=== PATIENT | male | born 1965 | race Caucasian/White ===

== ENCOUNTER 2017-01-04 13:12 | Outpatient (CLI) | payer BC, OTHER ==
[2017-01-04 19:11] LABS: BASOPHILS # (AUTO) 0.1 10^3/uL (0.0-0.1); EOSINOPHILS # (AUTO) 0.1 10^3/uL (0.0-0.7); EOSINOPHILS % (AUTO) 1.9 %; HCT - HEMATOCRIT 41.4 % (42.0-52.0); HGB - HEMOGLOBIN 14.1 g/dL (14.0-18.0); LYMPHOCYTES % (AUTO) 37.8 %; MEAN CORPUSCULAR HEMOGLOBIN 34.2 pg (27.0-31.0); MEAN CORPUSCULAR VOLUME 100.8 fL (80.0-94.0); MEAN PLATELET VOLUME 7.5 fL (7.4-11.4); MONOCYTES # (AUTO) 0.5 10^3/uL (0.0-1.0); MONOCYTES % (AUTO) 9.5 %; NEUTROPHILS # (AUTO) 2.6 10^3/uL (1.5-6.6); NEUTROPHILS % (AUTO) 49.8 %; NUCLEATED RED BLOOD CELLS AUTO 0.1 /100WBC; RED BLOOD COUNT 4.11 10^6/uL (4.70-6.10); RED CELL DISTRIBUTION WIDTH 12.6 % (12.0-15.0); UNCORRECTED WHITE BLOOD COUNT 5.3 x10^3/uL; WHITE BLOOD COUNT 5.3 x10^3/uL (4.8-10.8)
[2017-01-04 20:13] LABS: ALBUMIN/GLOBULIN RATIO 1.4 (1.0-2.2); BILIRUBIN,TOTAL 0.3 mg/dL (0.2-1.0); BUN - BLOOD UREA NITROGEN 25 mg/dL (6-20); CALCIUM 9.3 mg/dL (8.5-10.3); CARBON DIOXIDE - CO2 28 mmol/L (21-32); CHLORIDE 106 mmol/L (101-111); CHOL/HDL RATIO 2.7 (<5.0); CHOLESTEROL 183 mg/dL; CREATININE 0.8 mg/dL (0.6-1.2); GFR - MDRD 101 (>89); GLUCOSE 100 mg/dL (70-100); HDL CHOLESTEROL 67 mg/dL; LDL/HDL RATIO 1.6 (<3.6); POTASSIUM 4.2 mmol/L (3.5-5.0); SODIUM 142 mmol/L (135-145); TOTAL PROTEIN 7.1 g/dL (6.7-8.2); TRIGLYCERIDES 54 mg/dL; VLDL CHOLESTEROL 11 mg/dL
== END 2017-01-04 13:13 | disposition home or self-care (01) ==
LOC: LAB.WCP 13:12
PROVIDERS: ATTEND Family Medicine
DX: I10 Essential (primary) hypertension (principal)
CPT/HCPCS: 36415; 80053; 80061; 85025; 86317; 86704; 86803; 87340

== ENCOUNTER 2017-04-03 13:17 | Emergency (ER) | payer BC ==
--- NOTE | 2017-04-03 14:34 | ED Physician Documentation ---
PD HPI SEIZURE - Stated complaint Stated Complaint: SEIZURE - Chief complaint Chief Complaint: Neuro - History obtained from History obtained from: Patient, Family () - History of Present Illness Timing - onset: Last night Witnessed: Witnessed (his describes him having blank stare and them seizure like movements, foaming breathing, then awoke and was confused for 10- 15 minutes. Was sitting at time and preceded by "tunnel vision" for several seconds. No prior similar episodes.) Number of seizures: Single, Lasted minutes. No: Lasted > 30 min Description of seizure activity: Generalized Injury during seizure: None. No: Fell Associated symptoms: Vision changes. No: Headache, Palpitations, Dyspnea, Nausea / vomiting History of seizures: First seizure. No: Known seizure disorder, Prior EtOH wdrawal sz (but had had recent binge of heavy drinking for 10 days while visiting family and then no alcohol for past 2 days since returning, and was having some shakiness and nausea prior to the event. No vomiting. No head injury. Was not ill nor feverish.), Prior TBI Contributing factors: EtOH withdrawal. No: Head injury Similar symptoms before: Has not had sx before (some withdrawal in the past but previously had tapered alcohol use to stop and had been sober for 1-2 months prior to trip to visit family (for family ).) Recently seen: Not recently seen Review of Systems Constitutional: denies: Fever, Chills Nose: denies: Rhinorrhea / runny nose, Congestion Throat: denies: Sore throat Respiratory: denies: Cough PD PAST MEDICAL HISTORY - Past Medical History Past Medical History: Yes Cardiovascular: Hypertension Respiratory: None Neuro: None Endocrine/Autoimmune: None - Past Surgical History Past Surgical History: Yes General: Bowel surgery HEENT: Tonsil/Adenoidectomy - Present Medications Home Medications: Ambulatory Orders Medication Instructions Recorded Confirmed Hydrochlorothiazide 0 mg PO DAILY 04/03/17 04/03/17 Lisinopril 0 mg PO DAILY 04/03/17 04/03/17 Lorazepam [Ativan] 1 mg PO BID #6 tablet 04/03/17 - Allergies Allergies/Adverse Reactions: Allergies Allergy/AdvReac Type Severity Reaction Status Date / Time No Known Drug Allergies Allergy Verified 04/03/17 13:43 - Living Situation Living Situation: reports: With spouse/s.o. Living Arrangement: reports: At home - Social History Does the pt smoke?: Yes Smoking Status: Current every day smoker Does the pt drink ETOH?: Yes ETOH Use: Other (had been sober for 1-2 months, then drank heavily for 10 days on trip to family . no alcohol 2 days.) Substance Use and Type: Marijuana PD ED PE NORMAL - Vitals Vital signs reviewed: Yes - General General: Alert and oriented X 3, No acute distress, Well developed/nourished - HEENT HEENT: Atraumatic, Ears normal, Pharynx benign, Other (no tongue injury) - Neck Neck: Supple, no meningeal sign, No adenopathy - Cardiac Cardiac: RRR, No murmur - Respiratory Respiratory: Clear bilaterally - Abdomen Abdomen: Soft, Non tender - Back Back: No CVA TTP - Derm Derm: Normal color, Warm and dry - Extremities Extremities: No tenderness to palpate, Normal ROM s pain, No edema, No calf tenderness / cord - Neuro Neuro: Alert and oriented X 3, 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, No motor deficit, No sensory deficit, Normal speech, Other - Psych Psych: Normal mood, Normal affect Results - Vitals Vitals: Oxygen O2 Source Room air - Labs Labs: Laboratory Tests 04/03/17 04/03/17 04/03/17 15:15 15:15 15:15 WBC 6.0 RBC 4.20 L Hgb 14.4 Hct 41.2 L MCV 98.1 H MCH 34.2 H MCHC 34.8 RDW 12.0 Plt Count 253 MPV 6.8 L Neut # 3.1 Lymph # 2.2 [place] # 0.5 Eos # 0.1 Baso # 0.1 Absolute Nucleated RBC 0.00 Nucleated RBC % 0.0 Sodium 136 Potassium 3.6 Chloride 100 L Carbon Dioxide 26 Anion Gap 10.0 BUN 16 Creatinine 0.7 Estimated GFR (MDRD) 118 Glucose 96 Calcium 9.4 Magnesium 1.9 Total Bilirubin 0.9 AST 27 ALT 31 Alkaline Phosphatase 57 Total Creatine Kinase 152 Troponin I < 0.04 Total Protein 7.9 Albumin 4.6 Globulin 3.3 Albumin/Globulin Ratio 1.4 Lipase 83 H Ethyl Alcohol < 5.0 PD MEDICAL DECISION MAKING - ED course Complexity details: reviewed results, considered differential (the timing of prior alcoholism with sober for 1-2 months then strong binge drinking the past 10 days, none for 2 days with some shakiness/withdrawal symptoms, would be good scenarior for alcohol withdrawal seizures. New onset epilepsy fairly unlikely. Labs are okay so not apparent Sodium, glucose. No injury and is not sick/ feverish. ), d/w patient, d/w family () Departure - Departure Disposition: 01 Home, Self Care Clinical Impression: Seizure Alcohol withdrawal seizure Qualifiers: Complication of substance-induced condition: uncomplicated Qualified Code(s): F10.230 - Alcohol dependence with withdrawal, uncomplicated Condition: Stable Record reviewed to determine appropriate education?: Yes Instructions: ED Seizure Alcohol Withdrawal Follow-Up: Jaime Link MD [Primary Care Provider] - Prescriptions: Lorazepam [Ativan] 1 mg PO BID #6 tablet Comments: Drink lots of fluids. You can use Ativan twice daily for the next few days as your finishing out the withdrawal timeframe. It sounds most likely that he had an alcohol withdrawal seizure. Avoid alcohol and particularly high amounts. You would not need to be on any antiseizure medicines for this but really avoid binge drinking. Alternatively it could have possibly been a low blood pressure episode with fainting and seizure like activity. In which case maintain well hydration and regular eating over the next few days. Your blood tests here look normal and there is no signs of heart attack or injury nor electrolyte problems. Discharge Date/Time: 04/03/17 16:50
[2017-04-03] MEDS: diazePAM 5 MG TABLET PO STA (15:14)
[2017-04-03] MEDS ORDERED: diazePAM 5 MG TABLET PO ONE (15:16)
[2017-04-03 15:24] LABS: BASOPHILS # (AUTO) 0.1 10^3/uL (0.0-0.1); BASOPHILS % (AUTO) 1.3 %; EOSINOPHILS # (AUTO) 0.1 10^3/uL (0.0-0.7); HCT - HEMATOCRIT 41.2 % (42.0-52.0); HGB - HEMOGLOBIN 14.4 g/dL (14.0-18.0); LYMPHOCYTES # (AUTO) 2.2 10^3/uL (1.5-3.5); LYMPHOCYTES % (AUTO) 37.1 %; MEAN CORPUSCULAR HEMOGLOBIN 34.2 pg (27.0-31.0); MEAN CORPUSCULAR HGB CONC 34.8 g/dL (32.0-36.0); MEAN CORPUSCULAR VOLUME 98.1 fL (80.0-94.0); MEAN PLATELET VOLUME 6.8 fL (7.4-11.4); MONOCYTES # (AUTO) 0.5 10^3/uL (0.0-1.0); MONOCYTES % (AUTO) 8.9 %; NEUTROPHILS # (AUTO) 3.1 10^3/uL (1.5-6.6); NEUTROPHILS % (AUTO) 51.7 %
[2017-04-03 15:28] VITALS: BP 143/95
[2017-04-03 15:34] LABS: ALBUMIN/GLOBULIN RATIO 1.4 (1.0-2.2); BILIRUBIN,TOTAL 0.9 mg/dL (0.2-1.0); BUN - BLOOD UREA NITROGEN 16 mg/dL (6-20); CALCIUM 9.4 mg/dL (8.5-10.3); CARBON DIOXIDE - CO2 26 mmol/L (21-32); CHLORIDE 100 mmol/L (101-111); CREATININE 0.7 mg/dL (0.6-1.2); GFR - MDRD 118 (>89); GLUCOSE 96 mg/dL (70-100); LIPASE 83 U/L (22-51); MAGNESIUM 1.9 mg/dL (1.7-2.8); POTASSIUM 3.6 mmol/L (3.5-5.0); SODIUM 136 mmol/L (135-145); TOTAL PROTEIN 7.9 g/dL (6.7-8.2)
== END 2017-04-03 16:50 | disposition home or self-care (01) ==
LOC: ED 13:17
DX: R56.9 Unspecified convulsions (principal); I10 Essential (primary) hypertension; F17.200 Nicotine dependence, unspecified, uncomplicated
CPT/HCPCS: 36415; 80053; 80320; 82550; 83690; 83735; 84484; 85025; 93005; 99283; 99284

== ENCOUNTER 2017-05-07 09:24 | Outpatient (CLI) | payer BC | END 2017-05-07 09:25 | disposition home or self-care (01) | LOC: SC 09:24 | PROVIDERS: ATTEND Internal Medicine Pulmonary Disease | DX: G47.30 Sleep apnea, unspecified (principal); G47.10 Hypersomnia, unspecified; R06.83 Snoring; G47.8 Other sleep disorders | CPT/HCPCS: 99203; 99212 ==

== ENCOUNTER 2017-05-21 10:50 | Day surgery (SDC) | payer BC ==
[2017-05-21] MEDS ORDERED: LACTATED RINGERS 1,000 ML IV ONE (11:13)
[2017-05-21] MEDS ORDERED: MIDAZOLAM 2 MG/2 ML VIAL IVP ONE (12:37)
[2017-05-21] MEDS ORDERED: fentaNYL 100 MCG/2 ML VIAL IVP ONE (12:37)
[2017-05-21 13:53] VITALS: BP 100/84
== END 2017-05-21 10:51 | disposition home or self-care (01) ==
LOC: SDS 10:50
PROVIDERS: ATTEND Surgery
PROC: 0DBK8ZX Excision of Ascending Colon, Via Natural or Artificial Opening Endoscopic, Diagnostic (ICD-10-PCS; 2017-05-21)
PROC: 0DBP8ZX Excision of Rectum, Via Natural or Artificial Opening Endoscopic, Diagnostic (ICD-10-PCS; principal; 2017-05-21 12:00)
DX: Z12.11 Encounter for screening for malignant neoplasm of colon (principal); D12.2 Benign neoplasm of ascending colon; K62.1 Rectal polyp; I10 Essential (primary) hypertension; G47.30 Sleep apnea, unspecified; F17.210 Nicotine dependence, cigarettes, uncomplicated
CPT/HCPCS: 45384; 45385; 88305; J7120

== ENCOUNTER 2017-06-26 09:49 | Outpatient (CLI) | payer BC | END 2017-06-26 09:50 | disposition home or self-care (01) | LOC: SC 09:49 | PROVIDERS: ATTEND Nurse Practitioner Family | DX: G47.33 Obstructive sleep apnea (adult) (pediatric) (principal) | CPT/HCPCS: 99212; 99214 ==

== ENCOUNTER 2017-07-05 20:07 | Outpatient (CLI) | payer BC | END 2017-07-05 20:08 | disposition critical access hospital (66) | LOC: EMS 20:07 | PROVIDERS: ATTEND Surgery | DX: R55 Syncope and collapse (principal); R46.4 Slowness and poor responsiveness | CPT/HCPCS: A0425; A0427 ==

== ENCOUNTER 2017-07-05 20:23 | Emergency (ER) | payer BC ==
[2017-07-05] MEDS ORDERED: SODIUM CHLORIDE 0.9% 1,000 ML IV ONE (21:22)
[2017-07-05 21:42] LABS: BASOPHILS # (AUTO) 0.1 10^3/uL (0.0-0.1); BASOPHILS % (AUTO) 0.6 %; EOSINOPHILS # (AUTO) 0.1 10^3/uL (0.0-0.7); EOSINOPHILS % (AUTO) 1.2 %; HGB - HEMOGLOBIN 13.3 g/dL (14.0-18.0); LYMPHOCYTES # (AUTO) 1.4 10^3/uL (1.5-3.5); LYMPHOCYTES % (AUTO) 17.2 %; MEAN CORPUSCULAR HGB CONC 34.4 g/dL (32.0-36.0); MEAN CORPUSCULAR VOLUME 95.8 fL (80.0-94.0); MEAN PLATELET VOLUME 6.6 fL (7.4-11.4); MONOCYTES # (AUTO) 0.4 10^3/uL (0.0-1.0); MONOCYTES % (AUTO) 5.3 %; NEUTROPHILS # (AUTO) 6.1 10^3/uL (1.5-6.6); NEUTROPHILS % (AUTO) 75.7 %; PLT - PLATELET COUNT 318 10^3/uL (130-450); RED BLOOD COUNT 4.02 10^6/uL (4.70-6.10)
[2017-07-05 21:54] LABS: ALBUMIN/GLOBULIN RATIO 1.5 (1.0-2.2); BILIRUBIN,TOTAL 0.3 mg/dL (0.2-1.0); CALCIUM 8.3 mg/dL (8.5-10.3); CREATININE 1.1 mg/dL (0.6-1.2); TOTAL PROTEIN 6.7 g/dL (6.7-8.2)
--- NOTE | 2017-07-05 22:30 | ED Physician Documentation ---
PD HPI SYNCOPE - Stated complaint Stated Complaint: ALOC/LETHARGIC - Chief complaint Chief Complaint: Neuro - History obtained from History obtained from: Patient, EMS - History of Present Illness Witnessed: Witnessed Timing - onset: Today Duration: Minutes (2) Preceding symptoms: None Injury occurred: No: Fell, Head injury Similar symptoms before: Work up / diagnostics, Treatment Recently seen: Not recently seen - Additional information Additional information: Patient is a 52 year old male presenting to the emergency department for syncope. According to patient and ems patient had drank about half a pint today. Patient had a history of alchol abuse in the past but had been sober for the past month until yesterday. patient was sitting on the couch and his states that he passed out for a couple of minutes. She called ems. Upon initial evaluation in the emergency department patient was awake, and alert and denied any complaints. Review of Systems Constitutional: denies: Fever, Chills Eyes: denies: Decreased vision, Photophobia Ears: denies: Ear pain, Drainage/discharge Nose: reports: Reviewed and negative Throat: reports: Reviewed and negative Cardiac: denies: Chest pain / pressure, Palpitations, Calf pain Respiratory: denies: Dyspnea, Cough, Wheezing GI: denies: Nausea, Vomiting Skin: reports: Reviewed and negative Musculoskeletal: reports: Reviewed and negative Neurologic: reports: Syncope. denies: Altered mental status, Unresponsive PD PAST MEDICAL HISTORY - Past Medical History Past Medical History: Yes Cardiovascular: Hypertension Respiratory: Sleep apnea Neuro: None Endocrine/Autoimmune: None GI: Diverticulitis : None HEENT: None Psych: None Musculoskeletal: None Derm: None - Past Surgical History Past Surgical History: Yes General: Bowel surgery HEENT: Tonsil/Adenoidectomy - Present Medications Home Medications: Ambulatory Orders Medication Instructions Recorded Confirmed Lisinopril 15 mg PO DAILY 04/03/17 07/05/17 hydroCHLOROthiazide 25 mg PO DAILY 04/03/17 07/05/17 [Hydrochlorothiazide] Aspirin 81 mg PO DAILY 05/20/17 07/05/17 - Allergies Allergies/Adverse Reactions: Allergies Allergy/AdvReac Type Severity Reaction Status Date / Time No Known Drug Allergies Allergy Verified 07/05/17 20:32 - Social History Does the pt smoke?: Yes Smoking Status: Current some day smoker Does the pt drink ETOH?: Yes ETOH Use: Beer, Liquor - Immunizations Immunizations are current?: No Immunizations: TDAP >10years/unknown - POLST Patient has POLST: No PD ED PE NORMAL - Vitals Vital signs reviewed: Yes - General General: Alert and oriented X 3, No acute distress, Well developed/nourished - HEENT HEENT: Atraumatic, PERRL - Neck Neck: Supple, no meningeal sign, No JVD - Cardiac Cardiac: RRR, No murmur - Respiratory Respiratory: No respiratory distress - Abdomen Abdomen: Soft, Non tender, Non distended - Derm Derm: Normal color, Warm and dry, No rash - Extremities Extremities: No deformity, Normal ROM s pain, No calf tenderness / cord - Neuro Neuro: Alert and oriented X 3, No motor deficit, No sensory deficit, Normal speech Eye Opening: Spontaneous Motor: Obeys Commands Verbal: Oriented GCS Score: 15 Results - Vitals Vitals: Vital Signs - 24 hr 07/05/17 07/05/17 20:28 21:32 Temperature 36.7 C 36.5 C Heart Rate 92 94 Respiratory 17 18 Rate Blood Pressure 101/66 108/71 O2 Saturation 90 L 96 Oxygen O2 Source Nasal cannula Oxygen Flow Rate 2 - Labs Labs: Laboratory Tests 07/05/17 07/05/17 07/05/17 21:35 21:35 21:35 WBC 8.0 RBC 4.02 L Hgb 13.3 L Hct 38.5 L MCV 95.8 H MCH 33.0 H MCHC 34.4 RDW 12.0 Plt Count 318 MPV 6.6 L Neut # 6.1 Lymph # 1.4 L [place] # 0.4 Eos # 0.1 Baso # 0.1 Absolute Nucleated RBC 0.00 Nucleated RBC % 0.0 Sodium 137 Potassium 3.7 Chloride 105 Carbon Dioxide 23 Anion Gap 9.0 BUN 16 Creatinine 1.1 Estimated GFR (MDRD) 70 L Glucose 97 Calcium 8.3 L Total Bilirubin 0.3 AST 17 ALT 17 Alkaline Phosphatase 51 Troponin I < 0.04 B-Natriuretic Peptide Total Protein 6.7 Albumin 4.0 Globulin 2.7 Albumin/Globulin Ratio 1.5 Lipase 27 Ethyl Alcohol 196.5 07/05/17 21:35 WBC RBC Hgb Hct MCV MCH MCHC RDW Plt Count MPV Neut # Lymph # [place] # Eos # Baso # Absolute Nucleated RBC Nucleated RBC % Sodium Potassium Chloride Carbon Dioxide Anion Gap BUN Creatinine Estimated GFR (MDRD) Glucose Calcium Total Bilirubin AST ALT Alkaline Phosphatase Troponin I B-Natriuretic Peptide 7 Total Protein Albumin Globulin Albumin/Globulin Ratio Lipase Ethyl Alcohol PD MEDICAL DECISION MAKING - ED course Complexity details: reviewed old records, reviewed results, re-evaluated patient , considered differential, d/w patient ED course: Patient was seen and examined at bedside. IV access was gained and labs were drawn. patient was treated with a fluid bolus since he had mild hypotension. Patinet states that he recently had a full cardiac work up in the past few months and it was negative. ekg here was normal sinus. when patient's labs came back he was found to have and etoh of nearly 200. Patient's hypotension was likely secondary to the etoh. Patient's blood pressure improved with fluids and patient was stable for discharge home with his . Departure - Departure Disposition: 01 Home, Self Care Clinical Impression: Syncope Condition: Good Instructions: Syncope Dx Follow-Up: primary,care provider [Other] - Within 3 Days Comments: Your diagnostics today were within normal limits. Your symptoms were likely secondary to low blood pressure, tertiary to alcohol consumption. Please make sure you stay well hydrated and limit your alcohol intake. You should follow up with your pmd and you may return to the emergency department at any time for new, worsening or uncontrollable symptoms.
[2017-07-05 22:44] VITALS: BP 110/60
== END 2017-07-05 22:41 | disposition home or self-care (01) ==
LOC: EDUNIT# → ED 20:23
DX: R55 Syncope and collapse (principal); I95.9 Hypotension, unspecified; F10.10 Alcohol abuse, uncomplicated; G47.30 Sleep apnea, unspecified; Z79.82 Long term (current) use of aspirin; F17.200 Nicotine dependence, unspecified, uncomplicated
CPT/HCPCS: 36415; 80053; 80320; 83690; 83880; 84484; 85025; 93005; 96360; 99284

== ENCOUNTER 2017-09-13 08:00 | Outpatient (CLI) | payer BC ==
[2017-09-13 14:06] LABS: BASOPHILS # (AUTO) 0.1 10^3/uL (0.0-0.1); BASOPHILS % (AUTO) 1.2 %; EOSINOPHILS # (AUTO) 0.1 10^3/uL (0.0-0.7); EOSINOPHILS % (AUTO) 2.4 %; HGB - HEMOGLOBIN 13.9 g/dL (14.0-18.0); LYMPHOCYTES # (AUTO) 2.2 10^3/uL (1.5-3.5); LYMPHOCYTES % (AUTO) 43.4 %; MEAN CORPUSCULAR HEMOGLOBIN 32.8 pg (27.0-31.0); MEAN CORPUSCULAR HGB CONC 34.9 g/dL (32.0-36.0); MEAN CORPUSCULAR VOLUME 94.1 fL (80.0-94.0); MEAN PLATELET VOLUME 7.5 fL (7.4-11.4); MEAN RETIC VALUE 114.8; MONOCYTES # (AUTO) 0.5 10^3/uL (0.0-1.0); MONOCYTES % (AUTO) 10.6 %; NEUTROPHILS # (AUTO) 2.2 10^3/uL (1.5-6.6); NEUTROPHILS % (AUTO) 42.4 %; PLT - PLATELET COUNT 296 10^3/uL (130-450); RED BLOOD COUNT 4.24 10^6/uL (4.70-6.10); RED CELL DISTRIBUTION WIDTH 12.6 % (12.0-15.0); WHITE BLOOD COUNT 5.1 x10^3/uL (4.8-10.8)
[2017-09-13 14:17] LABS: PSA SCREEN (Z12.5) 0.63 ng/mL (0.000-2.000)
[2017-09-13 14:22] LABS: FREE T3 4.05 pg/mL (2.5-3.9); THYROID STIMULATING HORMONE 2.71 uIU/mL (0.34-5.60)
[2017-09-13 14:24] LABS: % IRON SATURATION 21 % (20-50); FREE T4 (FREE THYROXINE) 0.85 ng/dL (0.58-1.64); IRON 77 ug/dL (45-182); TOTAL IRON BINDING CAPACITY 363 ug/dL (250-450); TRANSFERRIN 259 mg/dL (180-329)
[2017-09-13 14:32] LABS: FOLATE 15.02 ng/mL (5.90 - >24.8)
== END 2017-09-13 08:01 | disposition home or self-care (01) ==
LOC: LAB.WCP 08:00
PROVIDERS: ATTEND Family Medicine
DX: Z00.00 Encounter for general adult medical examination without abnormal findings (principal); G47.9 Sleep disorder, unspecified; I10 Essential (primary) hypertension; F10.99 Alcohol use, unspecified with unspecified alcohol-induced disorder; Z12.5 Encounter for screening for malignant neoplasm of prostate
CPT/HCPCS: 36415; 81599; 82607; 82728; 82746; 83540; 84153; 84402; 84403; 84439; 84443; 84466; 84481; 85025; 85044

== ENCOUNTER 2018-11-17 12:07 | Emergency (ER) | payer BC, OTHER ==
--- NOTE | 2018-11-17 12:24 | ED Physician Documentation ---
PD HPI URI - Stated complaint Stated Complaint: COUGH FEVER - Chief complaint Chief Complaint: Heent - History obtained from History obtained from: Patient - History of Present Illness Timing - onset: How many days ago (5) Timing duration: Days (5) Timing details: Gradual onset, Still present Associated symptoms: Fever, Chills, Nasal congestion, Sinus pain, Productive cough. No: Dyspnea, NVD, Bilateral edema Contributing factors: No: Sick contact, Travel, COPD / asthma Similar symptoms before: Has not had sx before Recently seen: Not recently seen (he called PMD office and they did not have appts and referred to ER "to get a chest xray and some antibiotics" by front office staff, according to patient.) Review of Systems Constitutional: reports: Fever, Chills, Myalgias, Fatigue Nose: reports: Congestion. denies: Rhinorrhea / runny nose Throat: denies: Sore throat Cardiac: reports: Chest pain / pressure (left anterior chest hurts with coughing). denies: Palpitations, Pedal edema, Calf pain Respiratory: reports: Cough. denies: Dyspnea, Wheezing GI: reports: Nausea. denies: Abdominal Pain, Vomiting, Diarrhea Skin: denies: Rash, Lesions Neurologic: denies: Altered mental status, Headache PD PAST MEDICAL HISTORY - Past Medical History Cardiovascular: Hypertension Respiratory: Sleep apnea Endocrine/Autoimmune: None GI: Diverticulitis : None HEENT: None Psych: None Musculoskeletal: None Derm: None - Past Surgical History Past Surgical History: Yes General: Bowel surgery HEENT: Tonsil/Adenoidectomy - Present Medications Home Medications: Ambulatory Orders Medication Instructions Recorded Confirmed Lisinopril 15 mg PO DAILY 04/03/17 07/05/17 hydroCHLOROthiazide 25 mg PO DAILY 04/03/17 07/05/17 [Hydrochlorothiazide] Aspirin 81 mg PO DAILY 05/20/17 07/05/17 Benzonatate [Tessalon Perle] 100 - 200 mg PO TID PRN #30 capsule 11/17/18 Cephalexin [Keflex] 500 mg PO TID #20 capsule 11/17/18 dexAMETHasone [Decadron] 4 mg PO DAILY #5 tablet 11/17/18 - Allergies Allergies/Adverse Reactions: Allergies Allergy/AdvReac Type Severity Reaction Status Date / Time No Known Drug Allergies Allergy Verified 07/05/17 20:32 - Social History Does the pt smoke?: Yes Smoking Status: Current some day smoker Does the pt drink ETOH?: Yes - Immunizations Immunizations are current?: No Immunizations: TDAP >10years/unknown - POLST Patient has POLST: No PD ED PE NORMAL - Vitals Vital signs reviewed: Yes - General General: Alert and oriented X 3, No acute distress, Well developed/nourished, Other (repetitive cough without wheezing during exam) - HEENT HEENT: Moist mucous membranes, Pharynx benign - Neck Neck: Supple, no meningeal sign, No adenopathy - Cardiac Cardiac: RRR, No murmur - Respiratory Respiratory: No respiratory distress, Clear bilaterally - Abdomen Abdomen: Soft, Non tender - Derm Derm: Normal color, Warm and dry Results - Vitals Vitals: Vital Signs - 24 hr 11/17/18 11/17/18 12:17 13:50 Temperature 36.6 C 36.8 C Heart Rate 78 80 Respiratory 20 18 Rate Blood Pressure 177/102 H 155/97 H O2 Saturation 97 97 Oxygen O2 Source Room air - Rads (name of study) chest xray Radiology: Prelim report reviewed (no infiltrates) PD MEDICAL DECISION MAKING - ED course Complexity details: reviewed results, considered differential, d/w patient Departure - Departure Disposition: 01 Home, Self Care Clinical Impression: Upper respiratory infection Qualifiers: URI type: unspecified URI Qualified Code(s): J06.9 - Acute upper respiratory infection, unspecified Condition: Stable Record reviewed to determine appropriate education?: Yes Instructions: ED Upper Resp Infec Abx Tx Follow-Up: Jaime Link MD [Primary Care Provider] - Prescriptions: Benzonatate [Tessalon Perle] 100 - 200 mg PO TID PRN #30 capsule PRN Reason: Cough Cephalexin [Keflex] 500 mg PO TID #20 capsule dexAMETHasone [Decadron] 4 mg PO DAILY #5 tablet Comments: Stay well-hydrated. Tylenol or ibuprofen or Aleve if needed for fever chills or pains. Your chest x-ray is clear without any signs of pneumonia. Is not unusual for the head and chest infection to last even 7 to 10 days. It can be hard to distinguish viral versus bacterial though majority tend to be viral. At this point use Tessalon if needed for cough. Add Decadron steroid for inflammation of the sinus and bronchials to reduce symptoms. Cephalexin antibiotic as directed for potential bacterial infection. Recheck if still not improving over another 3 to 5 days. Discharge Date/Time: 11/17/18 13:53
[2018-11-17] MEDS ORDERED: BENZONATATE 100 MG CAPSULE PO STA (12:57)
[2018-11-17] MEDS ORDERED: DEXAMETHASONE 10 MG/ML VIAL PO STA (12:57)
[2018-11-17] MEDS ORDERED: CHERRY SYRUP 10 ML UDC PO ONE (12:57)
[2018-11-17] MEDS ORDERED: cephALEXin 250 MG CAPSULE PO STA (12:57)
--- NOTE | 2018-11-17 13:20 | XRAY Report ---
Reason: dyspnea/ cough Procedure Date: 11/17/2018 Accession Number: [id number] / [id number] Procedure: XR - Chest 2 View X-Ray CPT Code: 12274 FULL RESULT: EXAM: CHEST RADIOGRAPHY EXAM DATE: 11/17/2018 01:08 PM. CLINICAL HISTORY: Dyspnea/cough. COMPARISON: None. TECHNIQUE: 2 views. FINDINGS: Lungs/Pleura: No focal opacities evident. No pleural effusion. No pneumothorax. Normal volumes. Mediastinum: Heart and mediastinal contours are unremarkable. Other: None. IMPRESSION: No acute cardiopulmonary abnormality is detected. [facility]
[2018-11-17 13:50] VITALS: BP 155/97
== END 2018-11-17 13:53 | disposition home or self-care (01) ==
LOC: ED 12:07
DX: J06.9 Acute upper respiratory infection, unspecified (principal); I10 Essential (primary) hypertension; F17.200 Nicotine dependence, unspecified, uncomplicated
CPT/HCPCS: 71046; 93005; 99283; A9270

== ENCOUNTER 2021-06-21 09:43 | Outpatient (CLI) | payer SELFPAY ==
[2021-06-21 12:33] LABS: BASOPHILS # (AUTO) 0.1 10^3/uL (0.0-0.1); BASOPHILS % (AUTO) 1.2 %; EOSINOPHILS # (AUTO) 0.1 10^3/uL (0.0-0.7); EOSINOPHILS % (AUTO) 1.9 %; HCT - HEMATOCRIT 41.7 % (42.0-52.0); LYMPHOCYTES # (AUTO) 2.9 10^3/uL (1.5-3.5); LYMPHOCYTES % (AUTO) 43.1 %; MEAN CORPUSCULAR HEMOGLOBIN 36.9 pg (27.0-31.0); MEAN CORPUSCULAR VOLUME 102.5 fL (80.0-94.0); MEAN PLATELET VOLUME 9.6 fL (7.4-11.4); MONOCYTES # (AUTO) 0.7 10^3/uL (0.0-1.0); MONOCYTES % (AUTO) 10.3 %; NEUTROPHILS # (AUTO) 2.9 10^3/uL (1.5-6.6); NEUTROPHILS % (AUTO) 43.4 %; PLT - PLATELET COUNT 275 10^3/uL (130-450); RED BLOOD COUNT 4.07 10^6/uL (4.70-6.10); RED CELL DISTRIBUTION WIDTH 11.2 % (12.0-15.0); WHITE BLOOD COUNT 6.7 x10^3/uL (4.8-10.8)
[2021-06-21 12:48] LABS: ALBUMIN 4.2 g/dL (3.2-5.5); ALBUMIN/GLOBULIN RATIO 1.2 (1.0-2.2); ALKALINE PHOSPHATASE 59 IU/L (42-121); ALT ALANINE AMINOTRANSFERASE 78 IU/L (10-60); AST ASPARTATE AMINOTRANSFERASE 72 IU/L (10-42); BUN - BLOOD UREA NITROGEN 14 mg/dL (6-20); CALCIUM 9.3 mg/dL (8.5-10.3); CARBON DIOXIDE - CO2 24 mmol/L (21-32); CHLORIDE 98 mmol/L (101-111); CHOL/HDL RATIO 2.8 (<5.0); CHOLESTEROL 186 mg/dL; GFR - MDRD 77 (>89); GLUCOSE 112 mg/dL (70-100); HDL CHOLESTEROL 67 mg/dL; LDL CHOLESTEROL,CALCULATED 109 mg/dL; LDL/HDL RATIO 1.6 (<3.6); POTASSIUM 3.9 mmol/L (3.5-5.0); SODIUM 136 mmol/L (135-145); TOTAL PROTEIN 7.8 g/dL (6.7-8.2); TRIGLYCERIDES 50 mg/dL; VLDL CHOLESTEROL 10 mg/dL
== END 2021-06-21 23:59 | disposition home or self-care (01) ==
LOC: LAB.WCP 09:43
PROVIDERS: ATTEND Physician Assistant Medical
DX: Z00.00 Encounter for general adult medical examination without abnormal findings (principal); I10 Essential (primary) hypertension
CPT/HCPCS: 36415; 80053; 80061; 83721; 84153; 84439; 84443; 85025